=== PATIENT | female | born 2000 | race Caucasian/White ===

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

== ENCOUNTER 2020-02-12 11:05 | Emergency (ER) | payer BC ==
--- NOTE | 2020-02-12 12:15 | EDM.PDOC ---
ED HPI GENERAL MEDICAL PROBLEM - General Chief Complaint: Bite:Animal, Insect Stated Complaint: DOG BITE Time Seen by Provider: 02/12/20 11:15 Source of Information: Reports: Patient History Limitations: Reports: No Limitations - History of Present Illness INITIAL COMMENTS - FREE TEXT/NARRATIVE: Patient is a 19 y/o female who presents with dog bite to right hand. She states the dog is a known dog, that is up-to-date on it's immunizations and rabies vaccines. Patient had meat in her hand and the dog grabbed at it, biting her right hand. Patient is up-to-date on her tetanus immunizations. She denies any numbness/tingling. - Related Data Allergies Allergy/AdvReac Type Severity Reaction Status Date / Time No Known Allergies Allergy Verified 04/10/18 23:49 Home Meds: Home Meds NK [No Known Home Meds] 04/10/18 [History] Past Medical History - Past Health History Medical/Surgical History: Denies Medical/Surgical History Social & Family History - Tobacco Use Used Tobacco, but Quit: No Second Hand Smoke Exposure: No - Caffeine Use Caffeine Use: Reports: None ED ROS GENERAL - Review of Systems Review Of Systems: Comprehensive ROS is negative, except as noted in HPI. ED EXAM, ANIMAL BITE - Physical Exam Exam: See Below Text/Narrative:: Patient with 2.5 cm subcutaneous, linear, gaping laceration to right palmar wrist. wound is cleaned and no foreign body seen on exam. 2.0 cm subcutaneous, linear, gaping laceration to right palm near thumb. Wound is cleaned and no foreign body seen on exam. Puncture would to right dorsal hand. Cleaned and no foreign body seen on exam. Minor swelling to wounds. No drainage. Bleeding under control. Full range of motion of hand and wrist. Cap refill < 2 seconds to right hand digits. Peripheral pulses 2+ bilateral upper extremities. Exam Limited By: No Limitations General Appearance: Alert Skin Exam: Normal Color, Warm/Dry ED ANIMAL BITE PROCEDURES - Laceration/Wound Repair Right Hand Appearance: Subcutaneous, Clean Distal NVT: Neuro & Vascular Intact, No Tendon Injury Skin Prep: Chlorhexidine (Hibiciens) Exploration/Debridement/Repair: Wound Explored Closed With: Wound Adhesive, Dermabond, Steri-Strips Progress/Comments: Wrist laceration secured with 2 steri-strips and the ends were dermabonded down. Hand (palmar side) secured with 2 steri-strips and the ends were dermabonded down. Hand (dorsal side) secured with 1 steri-strip and the ends were dermabonded down. Course - Vital Signs Last Recorded V/S: Last Vital Signs Temp 36.6 C 02/12/20 11:14 Pulse Resp 16 02/12/20 11:14 BP 131/84 02/12/20 11:14 Pulse Ox 98 02/12/20 11:14 Departure - Departure Time of Disposition: 12:15 Disposition: Home, Self-Care 01 Clinical Impression: Dog bite Qualifiers: Encounter type: initial encounter Qualified Code(s): W54.0XXA - Bitten by dog, initial encounter - Discharge Information *PRESCRIPTION DRUG MONITORING PROGRAM REVIEWED*: No *COPY OF PRESCRIPTION DRUG MONITORING REPORT IN PATIENT JEREMIAS: No Instructions: Animal Bite, Adult, [id number] Referrals: PCP,None [Primary Care Provider] - Forms: ED Department Discharge Care Plan Goals: Keep area dry and clean for at least the next 7 days. Avoid immersion in water; keep area wrapped with dressings provided with outer VINCENT wrap. Loosen for comfort and monitor for effective circulation. take antibiotics as directed. Monitor for infection including fever, redness, swelling and excess drainage. 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 Augmentin PO BID x 10 days. Return to the ED for purulent drainage, swelling, redness, or fever >102. Wound re-check in 3 days.
== END 2020-02-12 12:08 | disposition home or self-care (01) ==
LOC: LB.ED 11:05
DX: S61.451A Open bite of right hand, initial encounter (principal); W54.0XXA Bitten by dog, initial encounter
CPT/HCPCS: 12002; 99283-25